=== PATIENT | male | born 1955 | race Caucasian/White ===

== ENCOUNTER 2022-01-23 09:43 | Day surgery (SDC) | payer MEDICARE, BC, SELFPAY ==
--- NOTE | 2022-01-19 12:44 | EKG12_ITS ---
Test Reason : PREOP Blood Pressure : / mmHG Vent. Rate : 078 BPM Atrial Rate : 078 BPM P-R Int : 152 ms QRS Dur : 086 ms QT Int : 368 ms P-R-T Axes : 033 -19 016 degrees QTc Int : 419 ms Normal sinus rhythm Normal ECG Confirmed by KILLIAN GUERRA, AMANDA ([id number]), business editor SHAHIDA HAQUE ([id number]) on 01/20/2022 9:03:22 AM Referred By: Aiden Flores Confirmed By:AMANDA DAILY MD
[2022-01-19 13:02] LABS: Hematocrit 41.5 % (40-54); Hemoglobin 13.8 g/dL (13.0-16.5); Mean Corp Hgb Conc 33.3 g/dL (32-36); Mean Corpuscular Hgb 31.9 pg (27.0-32.0); Mean Corpuscular Volume 95.8 fL (80-94); Mean Platelet Vol. 9.8 fl (6.2-12.0); Platelet Count 254 K/mm3 (150-450); RBC Distribution Width CV 14.3 % (11.6-14.6); RBC Distribution Width SD 50.4 fl (35.1-43.9); Red Blood Count 4.33 M/mm3 (4.6-6.2); White Blood Count 7.4 K/mm3 (4.4-11.0)
[2022-01-23] VITALS (9 sets, daily range): BP systolic 98–119; BP diastolic 54–73; PULSE 64–75; RESP 14–18; TEMP 36.3–37.2; O2SAT 93–99; BMI 25.5
[2022-01-23] MEDS: Lactated Ringers 1,000 ML 15 ML IV (10:41)
--- NOTE | 2022-01-23 11:34 | HP.PCM_ITS ---
History and Physical Date of Admission: 01/23/22 HISTORY AND PHYSICAL ? Soto Lux 1955 ? ? REFERRING PHYSICIAN: Waqar Riojas, DO ? CHIEF COMPLAINT: Consult (umbilical hernia, bilateral inguinal hernias) ? HPI: Soto is a 65 year old male with a complaint of a bulge and discomfort in his right inguinal region and left inguinal region. The patient notes discomfort in this area with lifting and straining. The symptoms have increased, over the past few months. ? The patient notes no symptoms of bowel obstruction and denies nausea or vomiting. The patient was seen by his primary care physician who felt the patient has a hernia. Soto was referred for evaluation and treatment. ? The patient is being seen by me today at the request of Dr. Riojas for my opinion and advice regarding Bilateral recurrent inguinal hernia without obstruction or gangrene (primary encounter diagnosis) Umbilical hernia without obstruction or gangrene. ? ? PAST MEDICAL HISTORY PAST MEDICAL HISTORY Diagnosis Date ? Bilateral inguinal hernia ? ? Essential hypertension ? ? Umbilical hernia ? ? ? PAST SURGICAL HISTORY PAST SURGICAL HISTORY Procedure Laterality Date ? REPAIR ING HERNIA,5+Y/O,REDUCIBL Left 1976 ? ? ? CURRENT MEDICATIONS Current Outpatient Medications Medication Sig ? amLODIPine-Benazepril 10-40 mg per capsule Take 1 capsule by mouth once daily. ? doxazosin (CARDURA) 4 mg tablet Take 4 mg by mouth once daily. ? No current facility-administered medications for this visit. ? ? ALLERGIES: Patient has no known allergies. ? PERSONAL HISTORY: SOCIAL HISTORY Social History ? Tobacco Use ? Smoking status: Former Smoker ? Smokeless tobacco: Never Used ? Tobacco comment: quit 15-16 years ago (2021) Vaping Use ? Vaping Use: Never used Substance Use Topics ? Alcohol use: Yes ? ? Comment: social ? Drug use: Never ? FAMILY HISTORY: FAMILY HISTORY FAMILY HISTORY Problem Relation Age of Onset ? COPD Mother ? ? ? REVIEW OF SYMPTOMS: The review of systems data was entered by the nurse and reviewed by me ? Nursing Notes: Jasmin Mari RN 10/21/2021 2:48 PM Signed REVIEW OF SYSTEMS: General: The patient denies fatigue, denies weight loss, denies weight gain, denies feeling hot, and denies feelings of cold. Eyes: The patient denies glaucoma, denies eye injury/surgery, wears glasses or contacts. Ear/Nose/Throat: The patient denies allergies, denies hayfever, denies ear infections, and denies bloody noses. Cardiovascular: The patient denies chest pain, denies heart disease, NOTES high blood pressure,denies cardiac stent, denies prior heart attack, denies irregular heart beat, denies high cholesterol, denies poor circulation, denies heart failure, other cardiac issues, denies claudication, denies cold feet, denies peripheral arterial stent. Respiratory: The patient denies tuberculosis, denies pneumonia, denies frequent cough, denies pulmonary embolism, denies shortness of breath, and denies coughing up blood. Gastrointestinal: The patient denies difficulty swallowing, denies acid reflux, denies ulcers, denies vomiting, denies jaundice/hepatitis, denies gallbladder problems, denies black or tarry stools, denies hemorrhoids, denies bleeding from rectum, denies diverticulitis, denies constipation, denies diarrhea, denies loss of stool control, and NOTES hernias. Kidney/Bladder: The patient denies kidney stones, denies urine infections, and denies bloody urine. Skin: The patient denies a history of skin cancer, denies bleeding/changing moles, and denies a history of skin rash. Neurologic: The patient denies a history of epilepsy/convulsions, denies headaches, denies head/spinal injuries, and denies stroke/TIA. Psychiatric: The patient denies psychiatric medications, denies depression, and denies voices, denies substance abuse. Endocrine: The patient denies thyroid disorders, denies diabetes, and denies hormonal problems. Hematologic: The patient denies a history of bruising, denies bleeding, and denies anemia, denies blood clots. Infections: The patient denies a history of measles and mumps, denies rheumatic fever, and denies sexually transmitted diseases. Musculoskeletal: The patient denies back pain/injury, denies back problems, denies sciatica, denies knee/foot trouble, denies arthritis, or denies gout. ? ? When was patient's last Mammogram screening? N/A ? Last Colonoscopy: None ? Jasmin Mari RN ? PHYSICAL EXAMINATION: ? General: The patient is 65 year old male, well nourished, well hydrated in no acute distress. The patient is oriented to time, place, and person. ? VITALS: Blood pressure 130/64, pulse 98, temperature 36.7 ?C (98.1 ?F), height 177.8 cm (5' 10), weight 87.4 kg (192 lb 9.6 oz), SpO2 97 %. Body mass index is 27.64 kg/m?. ? HEENT: Normal cephalic, ataumatic, pupils are equally round, sclera are anicteric, mucous membranes are moist, oropharynx is clear. Neck has no masses, asymmetry or lymphadenopathy. Thyroid is unremarkable. ? Respiratory: Clear to auscultation and percussion. Normal respiratory excursion and pattern. ? Cardiac: Examination is regular rate and rhythm. ? Abdominal exam: Soft, nontender, with no palpable masses. No hepatosplenomegaly. A moderate reducible bilateral inguinal hernias present, with umbilical hernia is noted ? Rectal exam: exam deferred ? Extremities: no clubbing, cyanosis or edema. No adenopathy. ? Other: ? ? LABORATORY VALUES: As Noted ? RADIOLOGIC STUDIES: As Noted ? Assessment IMPRESSION: Bilateral recurrent inguinal hernia without obstruction or gangrene (primary encounter diagnosis) Umbilical hernia without obstruction or gangrene ? PLAN: My plan is to perform a robotically assisted laparoscopic bilateral inguinal hernia repair with mesh. The planned surgical procedure was discussed extensively with the patient. The risks, benefits, anticipated outcomes and possible complications were mentioned. Soto helmands that all hernia repair surgery has a chance of recurrence and/or chronic post operative pain. My staff has also explained the procedure in understandable terms and the patient was given the option to take printed material concerning the planned procedure. The patient had the opportunity to ask questions concerning the planned procedure. The patient freely consents to the planned procedure. ? Once he is adequately recovered from this and I am going to do an umbilical hernia repair on him. ? A letter was sent to Dr. Riojas indicating the above finding for this patient. ? Diagnoses: (K40.21) Bilateral recurrent inguinal hernia without obstruction or gangrene (primary encounter diagnosis) (K42.9) Umbilical hernia without obstruction or gangrene ? Anticipated CPT Code: laparoscopic bilateral inguinal hernia repair with mesh - 18794 x 2-000 ? Anticipated Anesthetic: General ? Patient weight: Blood pressure 130/64, pulse 98, temperature 36.7 ?C (98.1 ?F), height 177.8 cm (5' 10), weight 87.4 kg (192 lb 9.6 oz), SpO2 97 %. BMI: Body mass index is 27.64 kg/m?. ? Planned antibiotic: Ancef 2gm IVPB telecommunications facility examiner to OR ? SCDs needed - Yes Return to Clinic: The patient is instructed to follow-up with me 1 week post operatively. ? COVID (Procedure Consent) Procedure Criteria ? Procedure Criteria: Yes Elective The surgeon/proceduralist and patient have discussed in detail the risk of exposure to and/or potential harm posed by the COVID-19 virus with having a surgery/procedure at this time versus the risk of? delaying the surgery/procedure. It is not possible to know either the risk of delaying the surgery or procedure or chance of getting an infection with perfect accuracy, but a joint decision was made between the patient and the surgeon/proceduralist ?to proceed at this time with the scheduled surgery/procedure as indicated on the consent form. ? ? Aiden Flores III, MD I have re-examined the patient. There are no clinical changes since date of exam.
[2022-01-23] MEDS: Cefazolin 2 GM in 0.9% Normal Saline 100 ML IV (12:28)
[2022-01-23] MEDS: Bupivacaine 0.25% 30 ML Vial (12:50)
--- NOTE | 2022-01-23 14:28 | PCM.OPRPT ---
Problems Associated Problem List Diagnoses (1) Bilateral inguinal hernia without obstruction or gangrene: Report of Operation Date of Procedure: 01/23/22 Pre-Operative Diagnosis: Bilateral inguinal hernias Post-Operative Diagnosis: Same Surgery/Procedure Performed:: Robotically assisted laparoscopic bilateral inguinal hernia repair with mesh Surgeon: Aiden Flores switch repairer: Bertrand Ramirez Type of Anesthesia: General Anesthesiologist: Milo Dumont Estimated Blood Loss (mL): < 25 cc Description of Procedure: Patient was brought in the operating room placed in the supine position under excellent general anesthetic a Munoz catheter was placed. The abdomen was sterilely prepped and draped in the usual fashion. Local was injected supraumbilically. Dissection was carried down to the fascia. The fascia was grasped with a Austin. Varies needle was placed inside the abdomen. The abdomen was insufflated to 15 torr. A #8 trocar was placed. It was flank by 2 other #8 trochars approximately I hands with the way from the midline trocar. Patient was noted to have an umbilical hernia with the omentum caught in this. I was able to take down the omentum with the Enseal. I had excellent hemostasis. The robot was then brought in the bed was placed in the headdown position the robot was docked I then went to the console. I had a pro grasp in my left hand para scissors on my right hand. I scored the peritoneum on the left dissected down brought back a direct inguinal hernia after this was done I then went to the right side scored the peritoneum on the right side dissected down and met myself in the midline. I brought back a direct as well as an indirect inguinal hernia on the right side. Identified the cord and vessel structures without difficulty. I then went to the left side I dissected free the cord and vessel structures here this took quite a bit more dissection it was a lot of fatty tissue around this area I then fashioned a 12 x 16 ProGrip mesh on the right side and a 10 x 15 on the right side. They laid completely flat covering the defect excellently. I reperitonealized the area with a 3 OV lock on both sides and I had 2 mesenteric rents which I closed with a [id number] stitch of 3-0 Vicryl. All needles were retrieved. I inspected I had no other rents that needed to be closed. Trochars were removed under direct visualization good and the stasis was noted. Skin incisions were closed with subcuticular stitches of 4 Monocryl. Steri-Strips were applied. Sterile dressings were applied. Patient tolerated the procedure well. Munoz catheter was removed Admit VTE Documentation VTE Present on Admission: No VTE Mechan Device Prophylaxis: SCD's VTE Pharm Prophylaxis ordered?: No Reason prophylaxis not ordered:: Treatment Not Indicated
--- NOTE | 2022-01-23 14:35 | DCINST_ITS ---
Discharge Instructions Procedure Hernia Diet Discharge Diet: Light diet - advance as tolerated Activity Discharge Activity: Return to Normal Activity, May Drive (when you are no longer taking narcotic pain medications.) and May Shower (with the bandage in place 1-2 days after surgery.) Lifting Restrictions: 20 pounds for 8 weeks. Additional Activity Instructions:: Climbing stairs is fine, walking is e ncouraged. Sitting in bed may be uncomfortable. Sitting up using your lateral muscles (sitting up sideways) is usually more comfortable. Do not drive, work heavy equipment of sign legal documents for 24 hours. If your hernia repair was an ingunial repair, you may have scrotal swelling, an ice pack and/or athletic support can provide more comfort. Pain medications may cause nausea, you should typically eat light foods as you take your pain medications. Pain medications may also cause constipation. If you have difficulty with this, discuss with your doctor. Dressing / Incision Call your doctor if your incision/area has: Continuous Slow Oozing, Sudden Increased Bleeding, Increased Pain/ Swelling, Increased Redness and Foul Smelling Discharge Call your doctor if you observe: Fever of 101 or Higher Suture Line Care: Avoid Pulling/Pushing and Avoid Pinching/Bending Additional Dressing/Incision Instructions:: Leave the operative bandage on for 2-3 days. When you remove the bandage, leave the steri-strips on place until your follow up appointment or they fall off. Follow Up Care Please Follow Up With: Monse Cardoza PA-C When: Call office to schedule an appointment to be seen in 7 days. Test Results: Test results from this visit will be discussed in further detail at your follow- up appointment, if applicable. Discharge Plan Admission Attending Provider: Aiden Flores Primary Care Provider: Waqar Riojas Discharge Orders/Prescriptions Prescriptions: New oxycodone-acetaminophen [Endocet] 5-325 mg tablet 1 tab PO Q4H PRN (Reason: pain) 5 Days Qty: 20 0RF No Action doxazosin 4 mg Tablet 4 mg PO DAILY amlodipine-benazepril 10-40 mg Capsule 1 cap PO DAILY Referrals / Follow Up: Aiden Flores MD [STAFF PHYSICIAN] - Waqar Riojas DO [Primary Care Provider] - Monse Cardoza PA-C [PHYSICIAN NOUGAT CUTTER MACHINE] - Disposition Disposition (needs filled in before D/C Order can be placed): Home, Self Care
[2022-01-23] MEDS: oxyCODONE 5 MG Tablet 10 MG PO (16:47)
== END 2022-01-23 17:16 | disposition home or self-care (01) ==
LOC: SDC 09:46 → AC 09:46
PROVIDERS: Anesthesiology; PCP Family Medicine; Referring Provider Surgery; Visit Provider Surgery
PROC: (CPT 49650; principal; 2022-01-23 12:10)
DX: K40.20 Bilateral inguinal hernia, without obstruction or gangrene, not specified as recurrent (principal); Z87.891 Personal history of nicotine dependence; I10 Essential (primary) hypertension; K42.9 Umbilical hernia without obstruction or gangrene; Z86.16 Personal history of COVID-19; Z79.899 Other long term (current) drug therapy
CPT/HCPCS: 49650; S2900; 00840; 36415; 85027; 93005; J7120; J2405

== ENCOUNTER → 2025-06-21 | Outpatient (CLI) | payer MEDICARE, BC, SELFPAY ==
[2025-06-21 16:00] LABS: Squamous Epithelial Cells - UA 0 SEEN /hpf (0-5)
[2025-06-21 17:56] LABS: Hematocrit 42.0 % (40-54); Hemoglobin 14.4 g/dL (13.0-16.5); Immature Granulocytes Count 0.060 X10^3/uL (0.0-0.0); Mean Corp Hgb Conc 34.3 g/dL (32-36); Mean Corpuscular Volume 92.7 fL (80-94); Mean Platelet Vol. 10.5 fl (6.2-12.0); NRBC Flagged by Analyzer 0 % (0-5); Platelet Count 253 K/mm3 (150-450); RBC Distribution Width CV 15.0 % (11.6-14.6); RBC Distribution Width SD 51.7 fl (35.1-43.9); Red Blood Count 4.53 M/mm3 (4.6-6.2); White Blood Count 7.9 K/mm3 (4.4-11.0)
[2025-06-21 18:21] LABS: AST(SGOT) 26 U/L (<=37); Alanine Aminotransfer ALT/SGPT 30 U/L (<=46); Albumin, Serum 4.4 g/dL (3.4-4.8); Alkaline Phosphatase 61 U/L (40-129); Anion Gap 12 (5-15); BUN 22 mg/dL (4-19); BUN/Creat Ratio 29.3 RATIO (10-20); Calcium,Total 9.6 mg/dL (7.6-11.0); Carbon Dioxide 22.6 mmol/L (21.0-32.0); Chloride 102 mmol/L (98-108); Cholesterol 191 mg/dL (<=200); Globulin 3.5 g/dL (2.2-4.2); Glucose 92 mg/dL (70-99); Low Density Lipoprotein Calc. 124 mg/dL; Magnesium 2.2 mg/dL (1.5-2.2); Potassium 4.2 mmol/L (3.3-5.1); Triglycerides 71 mg/dL; Very Low Density Lipoprotein 14 mg/dL (5-40); cholesterol:hdl ratio screen 3.54
[2025-06-21 19:20] LABS: Color, Urine Yellow (Yellow); Glucose, Dipstick Normal (Normal); Ketone-Dipstick Negative (Negative); Leukocyte Esterase-Dipstick Negative /ul (Negative); Nitrite-Dipstick Negative (Negative); Occult Blood-Urine 10 /ul (Negative); Protein-Dipstick 15 mg/dl (Negative); Specific Gravity, Urine 1.020 (1.002-1.030); Urine Bilirubin Dipstick Negative (Negative)
[2025-06-21 21:43] LABS: Red Blood Cells-Urine 0-5 SEEN /hpf (0-5)
[2025-06-21 21:44] LABS: Mucous, Urine 1+ /hpf (<or=2+)
== END | disposition home or self-care (01) ==
LOC: MTLAB 15:51
PROVIDERS: PCP Family Medicine; Referring Provider Family Medicine; Visit Provider Family Medicine
DX: I10 Essential (primary) hypertension (principal)
CPT/HCPCS: 36415; 80053; 80061; 81001; 83735; 85025